=== PATIENT | male | born 1940 | race Caucasian/White ===

== ENCOUNTER 2023-08-25 14:26 | Inpatient (IN) | payer MEDICARE, SELFPAY ==
[2023-08-25] VITALS (8 sets, daily range): BP systolic 117–156; BP diastolic 58–74; BMI 23.9; BMI 23.3
[2023-08-25 11:30] LABS: % Basophils 0.4 % (0-2); % Eosinophils 0.5 % (0-6); % Immature Granulocytes 0.5 % (0-0.5); % Lymphocytes 6.1 % (20.5-51.1); % Monocytes 8.1 % (1.7-9.3); % Neutrophils 84.4 % (42.2-75.2); Absolute Eosinophils 0.1 10^3/uL (0-0.7); Absolute Immature Granulocytes 0.1 10^3/uL (0-0.05); Absolute Lymphocytes 0.6 10^3/uL (1.2-3.4); Absolute Monocytes 0.9 10^3/uL (0.1-0.6); Absolute Neutrophils 8.9 10^3/uL (1.4-6.5); Hematocrit 34.5 % (39.0-52.0); Hemoglobin 12.1 g/dL (13.0-18.0); Mean Corp Hgb Conc. 35.1 g/dL (33.0-37.0); Mean Corpuscular Hgb 31.2 pg (27.0-31.0); Mean Corpuscular Volume 88.9 fL (80.0-94.0); Mean Platelet Volume 10.1 fL (7.4-10.4); Nucleated Red Blood Cells % 0 % (-); Platelet Count 189 10^3/uL (130-400); Red Blood Cell Count 3.88 10^6/uL (4.70-6.10); Red Cell Dist. Width 11.5 % (11.5-14.5); White Blood Cell Count 10.5 10^3/uL (4.8-10.8)
--- NOTE | 2023-08-25 11:33 | ED.GENMED ---
History of Present Illness
<GEOVANNA Rodríguez - Last Filed: 08/25/23 13:26>
General
Chief Complaint: Skin Problem
Source: patient and spouse
Exam Limitations: none
Time Seen by Provider: 08/25/23 11:00
Nursing documentation reviewed up to this point in time: agreed with
Travel History
Have you had any contact with someone who has COVID-19?: No
Do you have any symptoms of coronavirus? Fever > 100 degrees, chills, cough, shortness of breath, sore throat, loss of taste or smell, muscle aches, or headache?: No
History of Present Illness
History of Present Illness:
Patient is an 82-year-old male who presents to the ER with an open wound to left anterior thigh. He reports he started with a very small area of redness and small drainage over a week ago which has since progressively gotten worse. He complains of
increased pain swelling and redness to the area. He denies any fever or chills. Denies any injury
Past History
<GEOVANNA Rodríguez - Last Filed: 08/25/23 13:26>
Past History
ED Past Medical History: CVA (TIA) and Other (gastric ulcers/GI bleed, polio)
ED Past Surgical History: Cholecystectomy and Other (partial gastrectomy)
Social History
Tobacco: Former smoker
Alcohol: None
Drug: None
Personal:
Living: with family
Employment: Retired
Review of Systems
<GEOVANNA Rodríguez - Last Filed: 08/25/23 13:26>
Review of Systems
Allergies reviewed?: Yes
All Other Systems: ROS reviewed and negative except as documented in HPI and ROS
Constitutional: Reports no symptoms; Denies fever, fatigue or chills
EENT: Reports no symptoms
Respiratory: Reports no symptoms
Cardiac: Reports no symptoms
ABD/GI: Reports no symptoms
: Reports no symptoms
Skin: Reports other (+ wound to left thigh with drainage redness/swelling )
Neurological: Reports no symptoms
Hematologic/Lymphatic: Reports no symptoms
Psychiatric: Reports no symptoms
Phy Exam
<GEOVANNA Rodríguez - Last Filed: 08/25/23 13:26>
General Physical Exam
General Presentation: no apparent distress
General age: appears stated age
General Skin: warm and dry
General Habitus: normal
General Mental: alert
General Hydration: appears well hydrated
Neurological Exam
Neurological Exam: alert and oriented x3
Musculoskeletal Exam
Musculoskeletal Exam: other (+ open draining purulent wound to left anterior thigh with erythema , + swelling to thigh )
Skin Exam
Skin Exam: normal color and warm/dry
Psychiatric Exam
Psychiatric Exam: normal mood/affect
Course
<GEOVANNA Rodríguez - Last Filed: 08/25/23 13:26>
Orders/Labs/Results
Orders:
Orders
08/25/23 11:15
Cardiac Monitoring- Treatment ONCE
IV Insert/Care/Rem.- Treatment PRN
08/25/23 11:17
Complete Blood Count/With Diff Urgent
Comprehensive Metabolic Panel Urgent
Lactic Acid Q4H
Comment: ON ICE, CANCEL 2ND ORDER IF FIRST LACTIC ACID LEVEL <2
Blood Culture Q30M
CECY Source: Blood/Venous
Specimen Description:
Date Specimen was Collected: 08/25/23
Time Specimen was Collected: 11:16
Comment: FROM 2 SEPARATE SITES
08/25/23 11:21
Blood Culture Q30M
CECY Source: Blood/Venous
Specimen Description:
Comment: FROM 2 SEPARATE SITES
08/25/23 12:18
CT Lower Ext W/iv Cont Lt Urgent
Comment:
Reason For Exam: abscess
08/25/23 12:27
Urinalysis Reflex To Culture Urgent
Date Specimen was Collected: 08/25/23
Time Specimen was Collected: 11:16
Urine Microscopic Reflex Cult Urgent
Wound Culture [Wound/Abscess/Other Culture] Urgent
CECY Source: Abscess
Specimen Description:
Date Specimen was Collected: 08/25/23
Time Specimen was Collected: 12:22
Comment: left anterior thigh
08/25/23 13:16
Vancomycin 1 Gram/200 ml [Vancocin] 1 gram in 200 ml IV NOW
08/25/23 15:15
Lactic Acid Q4H
Comment: ON ICE, CANCEL 2ND ORDER IF FIRST LACTIC ACID LEVEL <2
Abnormal Lab Results
08/25/23 08/25/23
11:17 12:27
RBC 3.88 L 10^6/uL
(4.70-6.10)
Hgb 12.1 L g/dL
(13.0-18.0)
Hct 34.5 L %
(39.0-52.0)
MCH 31.2 H pg
(27.0-31.0)
Abs Immat Gran (auto) 0.1 H 10^3/uL
(0-0.05)
Absolute Neuts (auto) 8.9 H 10^3/uL
(1.4-6.5)
Absolute Lymphs (auto) 0.6 L 10^3/uL
(1.2-3.4)
Absolute Monos (auto) 0.9 H 10^3/uL
(0.1-0.6)
Neutrophils % 84.4 H %
(42.2-75.2)
Lymphocytes % 6.1 L %
(20.5-51.1)
Sodium 130 L mmol/L
(135-145)
Chloride 94 L mmol/L
(98-107)
Glucose 107 H mg/dl
(70-99)
Lactic Acid 0.6 L mmol/L
(0.7-2.0)
Total Protein 5.7 L g/dl
(6.3-8.2)
Albumin 3.3 L g/dl
(3.5-5.0)
Ur Occult Blood Reflex 1+ A
(Negative)
Urine RBC 3-6 A /HPF
(0-2)
Urine Bacteria (Reflex) Few A
(Negative)
08/25/23 11:17
08/25/23 11:17
Vital Signs
Initial and Last Documented VS:
Initial Vital Signs
Temp Pulse BP Pulse Ox
98.5 F 71 144/70 100
08/25/23 10:06 08/25/23 10:06 08/25/23 10:06 08/25/23 10:06
Last Documented Vital Signs
Temp Pulse BP Pulse Ox
98.5 F 71 140/59 100
08/25/23 10:06 08/25/23 10:06 08/25/23 11:22 08/25/23 11:30
Corporate Risk Analyst consulted with Physician
Corporate Risk Analyst consulted with physician?: Yes
Name of Physician Consulted: Bridget
Carollt;Stephen Gill, - Last Filed: 08/25/23 12:29>
Orders/Labs/Results
Orders:
Orders
08/25/23 11:15
Cardiac Monitoring- Treatment ONCE
IV Insert/Care/Rem.- Treatment PRN
08/25/23 11:17
Complete Blood Count/With Diff Urgent
Comprehensive Metabolic Panel Urgent
Lactic Acid Q4H
Comment: ON ICE, CANCEL 2ND ORDER IF FIRST LACTIC ACID LEVEL <2
Blood Culture Q30M
CECY Source: Blood/Venous
Specimen Description:
Date Specimen was Collected: 08/25/23
Time Specimen was Collected: 11:16
Comment: FROM 2 SEPARATE SITES
08/25/23 11:21
Blood Culture Q30M
CECY Source: Blood/Venous
Specimen Description:
Comment: FROM 2 SEPARATE SITES
08/25/23 12:18
CT Lower Ext W/iv Cont Lt Urgent
Comment:
Reason For Exam: abscess
08/25/23 12:27
Urinalysis Reflex To Culture Urgent
Date Specimen was Collected: 08/25/23
Time Specimen was Collected: 11:16
Urine Microscopic Reflex Cult Urgent
Wound Culture [Wound/Abscess/Other Culture] Urgent
CECY Source: Abscess
Specimen Description:
Date Specimen was Collected: 08/25/23
Time Specimen was Collected: 12:22
Comment: left anterior thigh
08/25/23 13:16
Vancomycin 1 Gram/200 ml [Vancocin] 1 gram in 200 ml IV NOW
08/25/23 15:15
Lactic Acid Q4H
Comment: ON ICE, CANCEL 2ND ORDER IF FIRST LACTIC ACID LEVEL <2
Abnormal Lab Results
08/25/23 08/25/23
11:17 12:27
RBC 3.88 L 10^6/uL
(4.70-6.10)
Hgb 12.1 L g/dL
(13.0-18.0)
Hct 34.5 L %
(39.0-52.0)
MCH 31.2 H pg
(27.0-31.0)
Abs Immat Gran (auto) 0.1 H 10^3/uL
(0-0.05)
Absolute Neuts (auto) 8.9 H 10^3/uL
(1.4-6.5)
Absolute Lymphs (auto) 0.6 L 10^3/uL
(1.2-3.4)
Absolute Monos (auto) 0.9 H 10^3/uL
(0.1-0.6)
Neutrophils % 84.4 H %
(42.2-75.2)
Lymphocytes % 6.1 L %
(20.5-51.1)
Sodium 130 L mmol/L
(135-145)
Chloride 94 L mmol/L
(98-107)
Glucose 107 H mg/dl
(70-99)
Lactic Acid 0.6 L mmol/L
(0.7-2.0)
Total Protein 5.7 L g/dl
(6.3-8.2)
Albumin 3.3 L g/dl
(3.5-5.0)
Ur Occult Blood Reflex 1+ A
(Negative)
Urine RBC 3-6 A /HPF
(0-2)
Urine Bacteria (Reflex) Few A
(Negative)
08/25/23 11:17
08/25/23 11:17
Vital Signs
Initial and Last Documented VS:
Initial Vital Signs
Temp Pulse BP Pulse Ox
98.5 F 71 144/70 100
08/25/23 10:06 08/25/23 10:06 08/25/23 10:06 08/25/23 10:06
Last Documented Vital Signs
Temp Pulse BP Pulse Ox
98.5 F 71 140/59 100
08/25/23 10:06 08/25/23 10:06 08/25/23 11:22 08/25/23 11:30
<GEOVANNA Rodríguez - Last Filed: 08/25/23 13:26>
MDM/Problems Addressed
Differential Diagnosis Includes:
Not limited to cellulitis, abscess
MDM/Problems Addressed:
82-year-old male with significant cellulitis, abscess to left anterior thigh has not had any medical treatment or been evaluated by a provider outside of the ER. He denies any fevers and is afebrile here with a normal white count normal lactic
acid. On exam however there is significant erythema swelling and drainage of what likely is an abscess underlying in the area.
Wound culture was sent. Patient evaluated by ED physician will obtain CAT scan to further evaluate for possible abscess may require debridement Incision/drainage . Sodium mildly low has been low in the past
<GEOVANNA Rodríguez - Last Filed: 08/25/23 13:26>
*Pulse Oximetry
Patient hypoxic: no
*Critical Care Note
Total Time (30-74mins, 75-104mins- exclusive of procedures): Not Applicable
ED Attending Note
<GEOVANNA Rodríguez - Last Filed: 08/25/23 13:26>
-
Portions of this chart may have been created with voice recognition software.� Occasional wrong word or��sound alike� substitutions may have occurred due to the inherent limitations of voice recognition software.
<Stephen Gill DO - Last Filed: 08/25/23 12:29>
ED Attending Note
Patient seen and examined by attending physician: Yes
I performed the substantive portion of visit, reviewed & personally made and approve the management plan that is documented in note by myself or IGOR.: Yes
ED Attending Note:
I agree with Felicia's note.
Pt presents with left thigh redness, swelling. No fever. Started with a small area of redness that has expanded and is now draining purulent material.
afebrile
Left thigh has large area of dark, almost necrotic appears tissue (4 x 4 cm) with purulent drainage. Surrounding area is indurated and tense ? underlying abscess.
IV vacno
CT w contrast to eval for abscess/myositis
Discharge Plan
Departure
Patient Disposition: Admit
Date of Disposition: 08/25/23
Time of Disposition: 13:26
Admit to: Med/Surg
Admit to doctor: hospitalist
Presentation/result/management discussed w/ accepting MD/DO: Hospitalist
Patient with high blood pressure during this ER visit?: Yes
Condition: Fair
Covid-19: Not Applicable
Discharge Problem:
cellulitis and abscess of thigh
Prescriptions:
No Action
multivitamin with folic acid [Tab-A-Mendoza] 1 TABLET tablet
1 tab PO DAILY
simvastatin 20 MG tablet
20 mg PO QPM
aspirin 81 MG tablet,delayed release (DR/EC)
81 mg PO DAILY Qty: 0 0RF
amlodipine [Norvasc] 5 mg Tablet
5 mg PO DAILY
lisinopril 5 mg Tablet
5 mg PO DAILY
Referrals:
Bryce Olvera MD [Family Provider] -
Interventions
Interventions:
*Risk Screen - Suicide Last Done: 08/25/23 11:21
*General Assessment Last Done: 08/25/23 11:21
*Neglect/Abuse Screening Last Done: 08/25/23 11:21
ED- Fall Risk Assessment Last Done: 08/25/23 11:21
ED-Skin Assessment Last Done: 08/25/23 11:21
Discharge Date and Time
Print Language: SETSWANA
[2023-08-25 11:42] LABS: Lactic Acid 0.6 mmol/L (0.7-2.0)
[2023-08-25 11:53] LABS: AST (SGOT) 26 U/L (17-59); Albumin 3.3 g/dl (3.5-5.0); Blood Urea Nitrogen 17 mg/dl (9-20); Calcium 8.7 mg/dl (8.4-10.2); Carbon Dioxide 26 mmol/L (22-30); Estimated Creatinine Clearance 87 ml/min; Glucose 107 mg/dl (70-99); Potassium 4.2 mmol/L (3.5-5.1); Total Bilirubin 0.6 mg/dl (0.2-1.3); Total Protein 5.7 g/dl (6.3-8.2); eGFR > 60.00
[2023-08-25 12:21] LABS: ALT (SGPT) 20 U/L (0-50); Alkaline Phosphatase 71 U/L (38-126); Chloride 94 mmol/L (98-107); Sodium 130 mmol/L (135-145)
[2023-08-25 12:47] LABS: Urine Albumin Negative (Neg - Trace); Urine Bilirubin Negative (Negative); Urine Character Clear (Clear); Urine Color Yellow; Urine Glucose Negative (Negative); Urine Leukocyte Negative (Negative); Urine Nitrite Negative (Negative); Urine Occult Blood 1+ (Negative); Urine Urobilinogen Negative (Neg - 1+)
[2023-08-25 12:49] LABS: Urine Ketone Negative (Negative)
[2023-08-25 13:10] LABS: Urine Bacteria Few (Negative); Urine Squamous Cell 0-2 /LPF (Few); Urine White Cell 0-2 /HPF (0-5)
[2023-08-25] MEDS: VANCOCIN 200 IV (13:44)
--- NOTE | 2023-08-25 14:00 | HPS.HSE ---
Family Physician
-
Family Physician: Bryce Olvera
Chief Complaint
-
Redness and swelling of left lower extremity
History of Present Illness
Patient is an 82 y/o male past medical history of hypertension, and recurrent TIAs who presents with redness and swelling of the left lower extremity. Patient reports 4-5 days ago he developed increasing redness and swelling of this left thigh. He
reports the area got progressively worse and then an area opened and started draining purulent material. He denies any known trauma. He denies fevers, sweats or chills.
Medical History
Past Medical History
Past Medical History: Reports Other
Additional Past Medical History:
Essential Hypertension
Hyperlipidemia
Recurrent TIA
Past Surgical History: Reports Other
Additional Past Surgical History:
Shrapnel Removal
Cholecystectomy
Social History
Tobacco: Non-smoker
Alcohol: None
Personal:
Living: With Family
Family History
Family History: Not pertinent
Allergies / Home Medications
Allergies reflects when Allergies were last updated in [facility].
Home Medications with original date entered in [facility]
Allergy/Medication List:
Allergies
Allergy/AdvReac Type Severity Reaction Status Date / Time
No Known Drug Allergies Allergy Unknown Verified 08/25/23 10:11
Home Medications
multivitamin with folic acid 400 mcg tablet (Tab-A-Mendoza) 1 tab PO DAILY Supplement 01/18/20
simvastatin 20 mg tablet 20 mg PO QPM High cholesterol 07/02/21
aspirin 81 mg tablet,delayed release 81 mg PO DAILY Blood clot prevention/tx ##0 07/03/21
amlodipine 5 mg tablet (Norvasc) 5 mg PO DAILY 04/09/23
lisinopril 5 mg tablet 5 mg PO DAILY 08/25/23
Review of Systems
-
A 12 point ROS was completed and negative except as noted: Yes
Constitutional: Denies Fever or Chills
Abdomen/GI: Denies Nausea or Vomiting
Skin: Reports See HPI
Physical Exam
Vital Signs
Vital Signs
Temp Pulse BP Pulse Ox
98.5 F 71 140/59 100
08/25/23 10:06 08/25/23 10:06 08/25/23 11:22 08/25/23 11:30
Physical Exam
General: Comfortable and Conversant
HEENT: Anicteric and Moist mucous membranes
Respiratory: Clear and Non Labored Respirations
Cardiac: S1/S2 and Regular Rhythm; No Tachycardia
GI: Soft and Non Tender
Musculoskeletal: No Clubbing, No Cyanosis and Edema, Left Lower Extremity
Skin: Other (Significant erythema with increased warmth to tough involving of left thigh; Open area draining purulent material noted)
Neuro: Awake, Alert, Oriented and Nonfocal/grossly intact
Laboratory Results
-
08/25/23 11:17
08/25/23 11:17
Laboratory Results
Lactic Acid 0.6 mmol/L (0.7-2.0) L 08/25/23 11:17
Total Bilirubin 0.6 mg/dl (0.2-1.3) 08/25/23 11:17
AST 26 U/L (17-59) 08/25/23 11:17
ALT 20 U/L (0-50) 08/25/23 11:17
Alkaline Phosphatase 71 U/L (38-126) 08/25/23 11:17
Data Reviewed
-
Lab Data: Labs Reviewed by me
Impression/Plan
-
Left Thigh Cellulitis with Abscess
-Consult General Surgery
-Continue vancomycin
-Await wound and blood cultures
-Await CT scan
Hyponatremia, mild
-Recheck in AM
-Consider further work-up with urine electrolytes if sodium remains low
Essential Hypertension
-Continue amlodipine and lisinopril with hold parameters
Hyperlipidemia
-Continue statin
Recurrent TIA
-Continue aspirin
DVT proph: Lovenox
Code Status: Full Code
--- NOTE | 2023-08-25 14:05 | W.PN.UPDATE ---
Update Note
Progress Note Update
I saw and examined the patient.
The HAND BRUSH FILLER or PA's note was reviewed and I agree with the note.
Comment: 82-year-old male presents with a left lower extremity wound that has progressed over the last 4 to 5 days.
140/59, 71, 98.5 �F, 100% on room air
No acute distress, awake and alert
Regular rate and rhythm, normal S1-S2
Clear to auscultation bilaterally
Left anterior thigh with 3 cm ulcer with scant purulent discharge. There are some pustules on the edge of the ulcer. The tissue is raised, indurated, tender, warm, erythematous.
WBC 10.5, hemoglobin 12.1, platelet 189
Sodium 130, potassium 4.2, creatinine 0.7
Left lower extremity cellulitis:
-Very likely the patient has an underlying abscess
-Check CT of the left lower extremity
-Consult surgery
-IV vancomycin for now
[2023-08-25] MEDS: DILAUDID 0.5 MG IV (15:50)
--- NOTE | 2023-08-25 16:11 | CON.GS ---
Medical History
-
Chief Complaint: LEFT knee pain
History of Present Illness:
Patient is an 82 yo M with a PMH of HTN, HLD, and recurrent TIAs (on ASA 81 mg) who presents with LEFT knee/thigh swelling, pain, and erythema. Mr. Guzman states that his symptoms began last Thursday and have progressed since that time. He has
noticed increased swelling, redness, and pain. No history of trauma. No obvious bites or skin lesions overlying the area. Mild purulent drainage. No antibiotic treatments. No significant functional limitations such as deeper knee joint pain or
inability to flex or extend his knee. No fevers or chills. No prior history of abscesses or cysts. Currently on a baby aspirin, but no other anticoagulation. Workup in the ED notable for afebrile, hemodynamically stable, normal WBC,
hyponatremia, normal renal function, normal lactate. A CT scan of the lower extremity was performed which demonstrates cellulitis as well as a approximately 3 x 4 cm abscess.
Past Medical History
Past Medical History: HTN and Hypercholesterolemia
Past Surgical History: None
Social History
Tobacco: Non-Smoker
Alcohol: None
Drug: None
Personal:
Living: With Family
Employment: Retired
Family History
Family History: Reviewed & Not Pertinent
Allergies / Home Medications
Allergy/AdvReac Type Severity Reaction Status Date / Time
No Known Drug Allergies Allergy Unknown Verified 08/25/23 10:11
�Medication �Instructions �Recorded �Confirmed �Type
multivitamin with folic acid 400 1 tab PO DAILY Supplement 01/18/20 08/25/23 History
mcg tablet (Tab-A-Mendoza)
simvastatin 20 mg tablet 20 mg PO QPM High cholesterol 07/02/21 08/25/23 History
aspirin 81 mg tablet,delayed 81 mg PO DAILY Blood clot 07/03/21 08/25/23 Rx
release prevention/tx ##0
amlodipine 5 mg tablet (Norvasc) 5 mg PO DAILY Blood Pressure 04/09/23 08/25/23 History
lisinopril 5 mg tablet 5 mg PO DAILY Blood Pressure 08/25/23 08/25/23 History
Review of Systems
-
A 10 point review of systems was completed, and was negative except as per HPI.
Physical Exam
Vital Signs
Temp Pulse BP Pulse Ox
98.5 F 71 132/65 99
08/25/23 10:06 08/25/23 10:06 08/25/23 14:00 08/25/23 14:45
08/24/23 08/25/23 08/26/23
06:59 06:59 06:59
Actual Weight 75.7 kg
Body Mass Index (BMI) 23.9
Lab Results
08/25/23 11:17
08/25/23 11:17
WBC 10.5 10^3/uL (4.8-10.8) 08/25/23 11:17
Hgb 12.1 g/dL (13.0-18.0) L 08/25/23 11:17
Hct 34.5 % (39.0-52.0) L 08/25/23 11:17
Plt Count 189 10^3/uL (130-400) 08/25/23 11:17
Abs Immat Gran (auto) 0.1 10^3/uL (0-0.05) H 08/25/23 11:17
Neutrophils % 84.4 % (42.2-75.2) H 08/25/23 11:17
Physical Exam
General: Well Developed, Well Nourished and No Apparent Distress
HEENT: Normocephalic and Anicteric
Respiratory: Non Labored Respirations
Cardiac: Regular Rhythm
GI: Soft, Non Tender and Non Distended
Musculoskeletal: Other (LEFT anterior knee/thigh with area of 15 x 15 cm with swelling, edema, erythema, tender to palpation, smaller more focal area proximately 3 x 3 cm with superficial skin breakdown and mild purulent drainage)
Skin: Warm and Dry
Neuro: Nonfocal/Grossly Intact
Data Reviewed
-
CT Scan: Image Personally Visualized and interpreted and Report Reviewed by me
Labs: Labs Reviewed by me
Assessment / Plan
-
Patient is an 82 yo M p/w LLE soft tissue abscess
Given the size and extent of cellulitis and abscess formation this is unlikely to be resolved with antibiotics alone. Recommend incision and drainage. Options for bedside drainage versus operative drainage were considered and discussed. The pros
and cons of both approaches was discussed with the patient. Patient is motivated and willing to proceed with bedside drainage.
Plan for incision and drainage of LEFT lower extremity soft tissue abscess. The procedure itself, as well as the risks, benefits, and alternatives was discussed (see separate procedure note). Specifically, we discussed the risks of bleeding,
persistent infection necessitating further drainage procedures, injury to surrounding structures (muscle, nerves), and prolonged wound healing were discussed. Typical postprocedure recovery was discussed. All questions answered. Verbal consent
obtained.
-- Incision and drainage of LLE abscess
-- Antibiotics: Vancomycin, wound cultures obtained
-- Regular diet
-- Dressing change tomorrow
--- NOTE | 2023-08-25 16:19 | W.PN.SURGUPD ---
Surgical Update
Surgical Update
Incision and drainage was performed at bedside. Verbal consent obtained.
Administration of 0.5 mg of Dilaudid IV for pain control. Local anesthetic in the form of 1% Lidocaine with Epinephrine (10 cc) was used as a field block. The area was prepped and draped in usual sterile fashion. A linear incision overlying the
abscess cavity was performed. This incision measured approximately 2.5 cm. Evacuation of 30-40 cc purulent and bloody fluid. Wound culture obtained. Compression of surrounding tissues to confirm complete evacuation. Significant decompression of
cavity. Wound was irrigated. Wound packed with dry gauze and covered with dry gauze Curlex and an Jayme wrap. Patient tolerated the procedure well. Will be admitted to hospital for IV antibiotics and wound care.
--- NOTE | 2023-08-25 16:36 | PHA.VAN.IN ---
Assessment
- Assessment
Renal Function: Appears similar to baseline
Concomitant Antimicrobials: NONE
- Previous Dosing Experience
Previous Regimen: NONE
AUC Dosing Plan
- Dosing Variables
Dosing Weight (kg): 75.7
Dosing CrCl (ml/min): 87
Vd coefficient (L/kg): 0.7
- Empiric Dosing
Initial / Loading Dose: 1750MG TOTAL
Maintenance Regimen: 1GM IV Q12H
Estimated AUC (mcg*h/mL): 512
Estimated Peak (mcg*h/mL): 31.4
Estimated Trough (mcg/ml): 13.5
Estimated Half Life (H): 9.0
Pharmacokinetics Vancomycin I
- -
Patient Age: 82
Patient Sex: Male
Vancomycin Day #: 1
Indication: Skin And Soft Tissue (LLE ABSCESS)
Requesting Provider: ZBIGNIEW
Height / Weight:
Height 5 ft 10 in
Actual Weight 73.567 kg
- Vital Signs / Lab Results
Temp Pulse BP Pulse Ox
98.5 F 71 132/65 99
08/25/23 10:06 08/25/23 10:06 08/25/23 14:00 08/25/23 14:45
Lab Results - Hematology
08/25/23
11:17
WBC 10.5
Lab Results - Chemistry
08/25/23
11:17
BUN 17
Creatinine 0.7
Estimated Creat Clear 87
Albumin 3.3 L
08/25/23 08/25/23
11:17 15:15
Lactic Acid 0.6 L Cancelled
Lab Results - Urine
08/25/23
12:27
Urine Nitrite (Reflex) Negative
Leukocyte Esterase Rfl Negative
Urine WBC (Reflex) 0-2
Ur Squamous Epith Cells 0-2
Urine Bacteria (Reflex) Few A
Microbiology Results
08/25/23 12:27 Gram Stain - Preliminary
Abscess
[2023-08-25] MEDS: NSS 1000 IV (16:53)
[2023-08-25] MEDS: VANCOCIN 150 IV (16:54)
[2023-08-25] MEDS: LIPITOR 10 MG PO (17:09)
[2023-08-25] MEDS: LOVENOX 40 MG SC (17:09)
--- NOTE | 2023-08-25 17:13 | PTCARENOTE ---
pt admitted from ED AOx3, denies pain. LCTA on RA. abd soft NT +BS x4 last BM yesterday. cont b&B. dressing intact to right thigh. +PP B/L. IVF and vanco. CB in reach and spouse at bedside
[2023-08-26] MEDS: VANCOCIN 200 IV ×2 (05:24→17:14)
[2023-08-26 05:45] LABS: Hematocrit 31.8 % (39.0-52.0); Hemoglobin 10.9 g/dL (13.0-18.0); Mean Corp Hgb Conc. 34.3 g/dL (33.0-37.0); Mean Corpuscular Volume 90.3 fL (80.0-94.0); Mean Platelet Volume 10.7 fL (7.4-10.4); Platelet Count 171 10^3/uL (130-400); Red Blood Cell Count 3.52 10^6/uL (4.70-6.10); Red Cell Dist. Width 11.5 % (11.5-14.5); White Blood Cell Count 8.3 10^3/uL (4.8-10.8)
[2023-08-26 06:07] LABS: Blood Urea Nitrogen 13 mg/dl (9-20); Calcium 8.1 mg/dl (8.4-10.2); Carbon Dioxide 25 mmol/L (22-30); Chloride 99 mmol/L (98-107); Estimated Creatinine Clearance 101 ml/min; Glucose 99 mg/dl (70-99); Potassium 4.2 mmol/L (3.5-5.1); Sodium 130 mmol/L (135-145); eGFR > 60.00
[2023-08-26 07:30] VITALS: BP 132/58
[2023-08-26] MEDS: ZESTRIL 5 MG PO (08:45)
[2023-08-26] MEDS: NORVASC 5 MG PO (08:45)
[2023-08-26] MEDS: ASPIR LOW (ENTERIC COATED) 81 MG PO (08:45)
--- NOTE | 2023-08-26 09:38 | W.PN.HOSP.TC ---
Today's Communication/Plan
-
see bold
Assessment / Plan
Assessment / Plan
Gen: NAD, AAOx3.
Eyes: EOMI, PERRLA, no scleral icterus.
Neck: supple.
CV: RRR, +S1/S2, no m/r/g.
Resp: CTAB, no rales, wheezes, or rhonchi.
Abd: +BS, soft, NT, ND
Skin: No rashes. L thigh with C/D/I DENISE wrap
Neuro: CN 2-12 intact, non-focal.
Psych: Normal mood and affect.
CT LLE: There is cellulitis throughout the right thigh with diffuse edema versus inflammatory stranding in the subcutaneous tissues of the left thigh and a more focal poorly circumscribed collection of low density fluid in the subcutaneous fat of
the anterior lower midportion of the left thigh more suggestive of focal edema than abscess as it is not associated with an enhancing wall.
Left lower extremity cellulitis:
-s/p I&D of abscess with expression of 30-40cc purulent/bloody fluid
-cont IV vancomycin for now
-c/s ID
-follow WCx
Other problems:
Hyponatremia, mild, stable, outpt w/u.
Chronic anemia, stable, outpt w/u.
Essential Hypertension: Continue amlodipine and lisinopril with hold parameters
Hyperlipidemia: Continue statin
Recurrent TIA: cont ASA/statin
FULL/Lovenox
Anticipated Discharge: 24 - 48 hours
Subjective/Interval History
-
Date of Service: August 26, 2023
No new complaints.
Objective Data
-
Labs:
Laboratory Results
08/26/23
05:22
WBC 8.3
Hgb 10.9 L
Hct 31.8 L
Plt Count 171
Sodium 130 L
Potassium 4.2
Chloride 99
Carbon Dioxide 25
BUN 13
Creatinine 0.6 L
Glucose 99
Calcium 8.1 L
Vital Signs:
Vital Signs
Temp Pulse Resp BP Pulse Ox
98.3 F 69 16 132/58 95
08/26/23 07:30 08/26/23 07:30 08/26/23 07:30 08/26/23 07:30 08/26/23 07:30
I&O
08/25/23 08/26/23 08/27/23
06:59 06:59 06:59
Intake Total 1480 / 1480
Output Total 1110 / 1110
Balance 370 / 370
--- NOTE | 2023-08-26 11:43 | PHA.VAN.FU ---
Vancomycin Assessment / Plan
- Assessment
Renal Function: Stable
WBC's are: WNL
In the past 24 hrs, patient has been: Afebrile
- Dosing Plan
Continue: vanconycin 1000 mg q12h - first dose 08/25 599
- Monitoring Plan
No level(s) ordered at this time: consider level when pt nears steady state
- Follow Up
Pharmacy will continue to follow.
Vancomycin Follow UP
- -
Patient Age: 82
Patient Sex: Male
Vancomycin Day #: 2
Indication: Skin And Soft Tissue (LLE ABSCESS)
Requesting Provider: ZBIGNIEW
Height / Weight:
Height 5 ft 10 in
Actual Weight 73.567 kg
- Vital Signs / Lab Results
Temp Pulse Resp BP Pulse Ox
98.3 F 69 16 132/58 95
08/26/23 07:30 08/26/23 07:30 08/26/23 07:30 08/26/23 07:30 08/26/23 07:30
Lab Results - Hematology
08/25/23 08/26/23
11:17 05:22
WBC 10.5 8.3
Lab Results - Chemistry
08/25/23 08/26/23
11:17 05:22
BUN 17 13
Creatinine 0.7 0.6 L
Estimated Creat Clear 87 101
Albumin 3.3 L
08/25/23 08/25/23
11:17 15:15
Lactic Acid 0.6 L Cancelled
Lab Results - Urine
08/25/23
12:27
Urine Nitrite (Reflex) Negative
Leukocyte Esterase Rfl Negative
Ur Squamous Epith Cells 0-2
Microbiology Results
08/25/23 11:21 Blood Culture - Preliminary
Blood/Venous No Growth in 24 hours- Final report to follow
08/25/23 11:17 Blood Culture - Preliminary
Blood/Venous No Growth in 24 hours- Final report to follow
08/25/23 12:27 Wound Culture - Preliminary
Abscess Staph aureus MRSA
Gram Stain - Preliminary
08/25/23 16:26 Gram Stain - Preliminary
Abscess
--- NOTE | 2023-08-26 14:56 | CM ---
Alert awake oriented patient who lives with his Gema who lives in a 2 story home with 1 step to enter and 6 steps to bed and bathroom. He is independent in driving and in all activities of daily living.He was offered VN he declined need.No
adaptive devices.
[facility] V[facility] hx / No SNF history
Ph[facility]acy [facility]
PCP DR Olvera
PLAN Home Declined VN
[2023-08-26 15:10] VITALS: BP 123/59
--- NOTE | 2023-08-26 15:30 | WOUNDNOTE ---
WOC RN NOTE: Patients wound debrided by Dr. Chavez and wound care orders added. Will follow peripherally.
--- NOTE | 2023-08-26 16:17 | CON.ID ---
Consultation
-
Date/Time Consultation Requested: 08/26/2023 09:40
Date/Time Consultation Performed: 08/26/2023 1200
Requesting Provider: Dr. Fuentes
Performing Provider: Dr. Lopez
Reason for Consultation: Left leg cellulitis
Chief Complaint / Past History
History of Present Illness
Jaya Guzman is an 82-year-old male being evaluated at the request of Dr. Fuentes in regards to a left leg infection. History is obtained from chart review, along with patient interview.
The patient reports that approximately 1 week prior to admission he developed a small pimple on his left leg on the anterior aspect. He notes that over the intervening week it grew in size with increasing discomfort and swelling. He reports some
drainage of blood and pus. Ultimately he presented to the hospital and the area was lanced. Cultures now reveal growth of MRSA, and Infectious Diseases is asked to comment upon further antimicrobial therapy.
During this period time he denies any fevers or chills. He noted increasing erythema of the anterior portion of the thigh, but no extension below the knee. He denies any inguinal discomfort.
Past History
Additional Past Medical History:
TIA x 4
Gastric ulcer
Additional Past Surgical History:
Cholecystectomy
Partial gastrectomy
Allergy History:
No Known Drug Allergies Allergy (Verified 08/25/23 10:11)
Unknown
Medications Reviewed: Yes
Current Antibiotics:
Vancomycin
Social History
Tobacco: Former Smoker
Alcohol: None
Drug: None
Personal:
Living: With Family
Employment: Retired
Family History
Family History: Not Pertinent
Review of Systems
Vital Signs
Temp Pulse Resp BP Pulse Ox
98.7 F 72 16 123/59 98
08/26/23 15:10 08/26/23 15:10 08/26/23 15:10 08/26/23 15:10 08/26/23 15:10
Physical Exam
Physical Exam
Constitutional: No Acute Distress, Comfortable and Non-toxic
Head: Normocephalic
Eyes: Pupils Equal, Pupils Round, No Conjunctival Hemorrhage and Sclera Anicteric
Oral: No Thrush and No Ulcers
Cardiovascular: S1/S2 and Murmur; Negative S3/S4
Pulmonary: Clear; Negative Wheezes, Rales or Rhonchi
Gastrointestinal: Soft, Non Tender, Non Distended and Normal Bowel Sounds
Skin: Warm and Dry; Negative Rash or Jaundice
Wound: Other (Left thigh with carbuncle and surrounding periwound erythema. Surrounding induration noted. Mild tenderness.)
Neurological: Awake and Alert
Psychological: Calm
Lab / Diagnostic Study Results
08/26/23 05:22
08/26/23 05:22
Abs Immat Gran (auto) 0.1 10^3/uL (0-0.05) H 08/25/23 11:17
Absolute Neuts (auto) 8.9 10^3/uL (1.4-6.5) H 08/25/23 11:17
Absolute Lymphs (auto) 0.6 10^3/uL (1.2-3.4) L 08/25/23 11:17
Absolute Monos (auto) 0.9 10^3/uL (0.1-0.6) H 08/25/23 11:17
Absolute Basos (auto) 0.0 10^3/uL (0-0.2) 08/25/23 11:17
Immature Gran % 0.5 % (0-0.5) 08/25/23 11:17
Neutrophils % 84.4 % (42.2-75.2) H 08/25/23 11:17
Lymphocytes % 6.1 % (20.5-51.1) L 08/25/23 11:17
Monocytes % 8.1 % (1.7-9.3) 08/25/23 11:17
Eosinophils % 0.5 % (0-6) 08/25/23 11:17
Basophils % 0.4 % (0-2) 08/25/23 11:17
Lactic Acid Cancelled 08/25/23 15:15
Ur Squamous Epith Cells 0-2 /LPF (Few) 08/25/23 12:27
Microbiology Results
Micro:
08/25/23 16:26 Wound Culture - Preliminary
Abscess Staph aureus MRSA
Gram Stain - Preliminary
08/25/23 11:21 Blood Culture - Preliminary
Blood/Venous No Growth in 24 hours- Final report to follow
08/25/23 11:17 Blood Culture - Preliminary
Blood/Venous No Growth in 24 hours- Final report to follow
08/25/23 12:27 Wound Culture - Preliminary
Abscess Staph aureus MRSA
Gram Stain - Preliminary
08/25/23 22:54 MRSA Screen - Pending
Nose
Imaging:
08/25/2023 CT left lower extremity: There is cellulitis throughout the right thigh with diffuse edema versus inflammatory stranding in the subcutaneous tissues of the left thigh and a more focal poorly circumscribed collection of low density fluid
in the subcutaneous fat of the anterior lower midportion of the left thigh more suggestive of focal edema than abscess as it is not associated with an enhancing wall.
Assessment / Plan
Left thigh carbuncle.
MRSA infection
Hx TIA
Hx gastric ulcer
Recommendations:
Continue with vancomycin. Follow levels closely.
Sensitivities of recovered MRSA isolate are pending. Once released, decision can be made regarding transition to oral therapy.
Continue with local care to the wound.
Monitor white count and temperature curve.
[2023-08-26] MEDS: LIPITOR 10 MG PO (17:13)
[2023-08-26] MEDS: LOVENOX 40 MG SC (17:14)
[2023-08-26 23:24] VITALS: BP 145/67
[2023-08-27 06:00] VITALS: BMI 23.0
[2023-08-27] MEDS: VANCOCIN 200 IV ×2 (06:07→17:46)
[2023-08-27] MEDS: FLUSH (NSS) 1 FLUSH IV (06:08)
[2023-08-27 07:26] VITALS: BP 143/73
[2023-08-27] MEDS: ZESTRIL 5 MG PO (07:26)
[2023-08-27] MEDS: ASPIR LOW (ENTERIC COATED) 81 MG PO (07:26)
[2023-08-27] MEDS: NORVASC 5 MG PO (07:26)
--- NOTE | 2023-08-27 08:12 | W.PN.HOSP.TC ---
Addendum entered and electronically signed by Rikki Fuentes MD 08/27/23 12:37:
Total time spent on d/c = 36 min. This included today's physical exam, progress note, review of laboratory and diagnostic data, preparation of discharge documents and prescriptions, and discussions about the pt's hospital course and discharge plan
with the patient and other medical sales representative involved in the patient's care.
Original Note:
Today's Communication/Plan
-
see bold
Assessment / Plan
Assessment / Plan
Gen: NAD, AAOx3.
Eyes: EOMI, PERRLA, no scleral icterus.
Neck: supple.
CV: remains RRR, +S1/S2, no m/r/g.
Resp: Cremains TAB, no rales, wheezes, or rhonchi.
Abd: +BS, soft, NT, ND
Skin: remains No rashes. L thigh with C/D/I DENISE wrap
Neuro: CN 2-12 intact, non-focal.
Psych: Normal mood and affect.
08/25/23 22:54 Nose MRSA Screen - Preliminary
Culture in Progress
08/25/23 12:27 Abscess Wound Culture - Preliminary
Staph aureus MRSA
08/25/23 12:27 Abscess Gram Stain - Preliminary
08/25/23 16:26 Abscess Wound Culture - Preliminary
Staph aureus MRSA
08/25/23 16:26 Abscess Gram Stain - Preliminary
08/25/23 11:21 Blood/Venous Blood Culture - Preliminary
No Growth in 24 hours- Final report to follow
08/25/23 11:17 Blood/Venous Blood Culture - Preliminary
No Growth in 24 hours- Final report to follow
CT LLE: There is cellulitis throughout the right thigh with diffuse edema versus inflammatory stranding in the subcutaneous tissues of the left thigh and a more focal poorly circumscribed collection of low density fluid in the subcutaneous fat of
the anterior lower midportion of the left thigh more suggestive of focal edema than abscess as it is not associated with an enhancing wall.
Left lower extremity cellulitis:
-s/p I&D of abscess with expression of 30-40cc purulent/bloody fluid
-WCx with MRSA
-cont IV vancomycin as per ID
Other problems:
Hyponatremia, mild, stable, outpt w/u.
Chronic anemia, stable, outpt w/u.
Essential Hypertension: Continue amlodipine and lisinopril with hold parameters
Hyperlipidemia: Continue statin
Recurrent TIA: cont ASA/statin
FULL/Lovenox
Anticipated Discharge: Within 24 hours
Subjective/Interval History
-
Date of Service: August 27, 2023
No new complaints.
Objective Data
-
Vital Signs:
Vital Signs
Temp Pulse Resp BP Pulse Ox
98.0 F 68 18 143/73 99
08/27/23 07:26 08/27/23 07:26 08/27/23 07:26 08/27/23 07:26 08/27/23 07:26
I&O
08/26/23 08/27/23 08/28/23
06:59 06:59 06:59
Intake Total 1480 / 1480 960 / 960
Output Total 1110 / 1110 3250 / 3250
Balance 370 / 370 -2290 / -2290
--- NOTE | 2023-08-27 12:23 | W.PN.ID1 ---
Date of Service
Date of Service: August 27, 2023
Today's Communication
Continue antibiotics. See below�
Assessment / Plan
Left thigh carbuncle.
MRSA infection
Hx TIA
Hx gastric ulcer
Recommendations:
Continue with vancomycin. Follow levels closely.
Sensitivities of MRSA isolate noted. I have asked the lab to release linezolid sensitivities. If susceptible, he can be discharged on linezolid 600 mg p.o. twice daily for an additional 7 days of therapy.
Continue with local care to the wound.
Monitor white count and temperature curve.
Chief Complaint
-: Cellulitis
Subjective / Review of Systems
Review of Systems: No Fever and No Chills
Vital Signs / Physical Exam
Vital Signs
Vital Signs
Temp Pulse Resp BP Pulse Ox
98.0 F 68 18 143/73 99
08/27/23 07:26 08/27/23 07:26 08/27/23 07:26 08/27/23 07:26 08/27/23 07:26
Physical Exam
Constitutional: No Acute Distress, Comfortable and Non-toxic
Eyes: Sclera Anicteric
Cardiovascular: S1/S2; Negative S3/S4
Pulmonary: Non Labored
Wound: Other (left anterior thigh with dressing in place. No strikethrough. )
Neurological: Awake and Alert
Psychological: Calm
Objective Data
Lab Data
Lab Results
08/26/23 05:22
08/26/23 05:22
Estimated Creat Clear 101 ml/min 08/26/23 05:22
Lactic Acid Cancelled 08/25/23 15:15
Total Bilirubin 0.6 mg/dl (0.2-1.3) 08/25/23 11:17
AST 26 U/L (17-59) 08/25/23 11:17
ALT 20 U/L (0-50) 08/25/23 11:17
Alkaline Phosphatase 71 U/L (38-126) 08/25/23 11:17
Most recent labs reviewed.
Micro Results:
08/25/23 11:21 Blood Culture - Preliminary
Blood/Venous No Growth in 48 hours- Final report to follow
08/25/23 11:17 Blood Culture - Preliminary
Blood/Venous No Growth in 48 hours- Final report to follow
08/25/23 16:26 Wound Culture - Final
Abscess Staph aureus MRSA
Gram Stain - Final
08/25/23 12:27 Wound Culture - Final
Abscess Staph aureus MRSA
Gram Stain - Final
08/25/23 22:54 MRSA Screen - Preliminary
Nose Culture in Progress
Imaging:
08/25/2023 CT left lower extremity: There is cellulitis throughout the right thigh with diffuse edema versus inflammatory stranding in the subcutaneous tissues of the left thigh and a more focal poorly circumscribed collection of low density fluid
in the subcutaneous fat of the anterior lower midportion of the left thigh more suggestive of focal edema than abscess as it is not associated with an enhancing wall.
Care Review
Plan reviewed with: Physician (Hospitalist)
--- NOTE | 2023-08-27 12:57 | W.DCSUMMARY ---
Discharge Summary
Discharge Data
Date of Admission: 08/25/23
Date of Discharge: 08/28/23
-
Pending Results: No
Hospital Course
Primary diagnoses:
Left thigh methicillin-resistant Staphylococcus aureus abscess with cellulitis
Secondary diagnoses:
Hyponatremia
Chronic anemia
Essential Hypertension
Hyperlipidemia
Recurrent transient ischemic attack
Consultants:
Infectious disease
Surgery
Imaging:
CT LLE: There is cellulitis throughout the right thigh with diffuse edema versus inflammatory stranding in the subcutaneous tissues of the left thigh and a more focal poorly circumscribed collection of low density fluid in the subcutaneous fat of
the anterior lower midportion of the left thigh more suggestive of focal edema than abscess as it is not associated with an enhancing wall.
Hospital course: 82-year-old male redness and swelling of left lower extremity as outlined in the H&P done on admission. The patient underwent incision and debridement of the abscess with expression of 30-40cc purulent/bloody fluid. Wound culture
grew MRSA. Patient improved on IV vancomycin and was transitioned to 7 days of Zyvox on discharge.
Discharge Plan
-
Patient Disposition: Home (Routine Discharge)
Discharge Diagnosis/Procedures: Left thigh methicillin-resistant Staphylococcus aureus abscess with cellulitis
Condition: Good
Diet: Other diet
Additional Diets: heart healthy
Activity: As tolerated
Driving Restrictions: Not until seen by your Dr
Bathing Restrictions: None
Referrals:
Justin Chavez MD [Active] - in two to four weeks
Bryce Olvera MD [Family Provider] - in less than 1 week
Prescriptions:
New
linezolid [Zyvox] 600 mg tablet
600 mg PO BID Qty: 13 0RF
Continued
multivitamin with folic acid [Tab-A-Mendoza] 1 TABLET tablet
1 tab PO DAILY
simvastatin 20 MG tablet
20 mg PO QPM
aspirin 81 MG tablet,delayed release (/EC)
81 mg PO DAILY Qty: 0 0RF
amlodipine [Norvasc] 5 mg Tablet
5 mg PO DAILY
lisinopril 5 mg Tablet
5 mg PO DAILY
Discharge Orders:
Discharge Patient (As Directed); Ordered 08/28/23
Ordered By: Rikki Fuentes
Discharge Date and Time
Print Language: GEORGIAN
[2023-08-27 13:00] VITALS: BP 140/75
--- NOTE | 2023-08-27 14:56 | CM ---
talent development manager following for d/c planning
Plan for d/c is for pt to be d/c'ed on Linezolid 600mg PO q12hrs - needs preauth
Predetermination form for medication faxed to [employer] -
Per Aena will take 24-72hrs for determination
Plan - anticipate d/c to home, no needs when medication approved
[2023-08-27 15:00] VITALS: BP 148/63
--- NOTE | 2023-08-27 15:47 | PHA.VAN.FU ---
Vancomycin Assessment / Plan
- Assessment
Renal Function: No New Labs Today
In the past 24 hrs, patient has been: Afebrile
- Dosing Plan
Continue: Vanc 1000mg Q12H
- Monitoring Plan
No level(s) ordered at this time: discharge plans on PO antibiotics noted - hold off on levels at this time
- Follow Up
Pharmacy will continue to follow.
Vancomycin Follow UP
- -
Patient Age: 82
Patient Sex: Male
Vancomycin Day #: 3
Indication: Skin And Soft Tissue
Requesting Provider: Ty Milian
Pertinent Antimicrobial Allergies:
NKDA
Height / Weight:
Height 5 ft 10 in
Actual Weight 72.665 kg
- Vital Signs / Lab Results
Temp Pulse Resp BP Pulse Ox
98 F 69 16 148/63 99
08/27/23 15:00 08/27/23 15:00 08/27/23 15:00 08/27/23 15:00 08/27/23 15:00
Lab Results - Hematology
08/25/23 08/26/23
11:17 05:22
WBC 10.5 8.3
Lab Results - Chemistry
08/25/23 08/26/23
11:17 05:22
BUN 17 13
Creatinine 0.7 0.6 L
Estimated Creat Clear 87 101
Albumin 3.3 L
08/25/23 08/25/23
11:17 15:15
Lactic Acid 0.6 L Cancelled
Microbiology Results
08/25/23 12:27 Wound Culture - Final
Abscess Staph aureus MRSA
Gram Stain - Final
08/25/23 11:21 Blood Culture - Preliminary
Blood/Venous No Growth in 48 hours- Final report to follow
08/25/23 11:17 Blood Culture - Preliminary
Blood/Venous No Growth in 48 hours- Final report to follow
08/25/23 16:26 Wound Culture - Final
Abscess Staph aureus MRSA
Gram Stain - Final
08/25/23 22:54 MRSA Screen - Preliminary
Nose Culture in Progress
--- NOTE | 2023-08-27 16:20 | W.PN.UPDATE ---
Update Note
Progress Note Update
At this time the precertification for the patient's Zyvox has not come through from the insurance company. I discussed this with the patient. At this time he would like to stay in the hospital through tomorrow afternoon to see if the
precertification comes through. Otherwise he would like to be discharged and just pay the full cost for the Zyvox. Case management and nursing updated at length.
[2023-08-27] MEDS: LIPITOR 10 MG PO (17:17)
[2023-08-27] MEDS: LOVENOX 40 MG SC (17:46)
--- NOTE | 2023-08-27 18:37 | VATNOTE ---
called to restart pt. due to large vanco infiltrate in right forearm. Measured 9cm wide x 20cm long. area red and non painful. area marked. Elevated right arm on pillow and applied ice per protocol. Awaiting hylenex for injection.
[2023-08-27] MEDS: HYLENEX 30 UNITS SC ×5 (19:17→19:19)
--- NOTE | 2023-08-27 19:20 | VATNOTE ---
hylenex given now subq; area of edema has now extended into hand measuring 8cm wide by 6 cm high. 2 injections of the 5 were given in right hand. heat will be applied now per protocol.
[2023-08-27 23:09] VITALS: BP 132/67
[2023-08-28 05:29] VITALS: BMI 22.9
[2023-08-28] MEDS: VANCOCIN 200 IV (06:04)
[2023-08-28 07:00] VITALS: BP 154/70
[2023-08-28] MEDS: ZESTRIL 5 MG PO (08:23)
[2023-08-28] MEDS: ASPIR LOW (ENTERIC COATED) 81 MG PO (08:23)
[2023-08-28] MEDS: NORVASC 5 MG PO (08:23)
--- NOTE | 2023-08-28 09:16 | W.PN.HOSP.TC ---
Today's Communication/Plan
-
d/c
Assessment / Plan
Assessment / Plan
Gen: NAD, AAOx3.
Eyes: EOMI, PERRLA, no scleral icterus.
Neck: supple.
CV: continues to remain RRR, +S1/S2, no m/r/g.
Resp: continues to remain CTAB, no rales, wheezes, or rhonchi.
Abd: +BS, soft, NT, ND
Skin: L anterior thigh open incision (~2cm) surrounded by erythema, induration, and raised soft tissue
Neuro: CN 2-12 intact, non-focal.
Psych: Normal mood and affect.
08/25/23 22:54 Nose MRSA Screen - Final
Staph aureus MRSA
08/25/23 12:27 Abscess Wound Culture - Final
Staph aureus MRSA
08/25/23 12:27 Abscess Gram Stain - Final
08/25/23 11:21 Blood/Venous Blood Culture - Preliminary
No Growth in 48 hours- Final report to follow
08/25/23 11:17 Blood/Venous Blood Culture - Preliminary
No Growth in 48 hours- Final report to follow
08/25/23 16:26 Abscess Wound Culture - Final
Staph aureus MRSA
08/25/23 16:26 Abscess Gram Stain - Final
CT LLE: There is cellulitis throughout the right thigh with diffuse edema versus inflammatory stranding in the subcutaneous tissues of the left thigh and a more focal poorly circumscribed collection of low density fluid in the subcutaneous fat of
the anterior lower midportion of the left thigh more suggestive of focal edema than abscess as it is not associated with an enhancing wall.
Left lower extremity cellulitis:
-s/p I&D of abscess with expression of 30-40cc purulent/bloody fluid
-WCx with MRSA
-cont IV vancomycin until discharge on Zyvox as per ID
Other problems:
Hyponatremia, mild, stable, outpt w/u.
Chronic anemia, stable, outpt w/u.
Essential Hypertension: Continue amlodipine and lisinopril with hold parameters
Hyperlipidemia: Continue statin
Recurrent TIA: cont ASA/statin
FULL/Lovenox
Total time spent on d/c = 31 min. This included today's physical exam, progress note, review of laboratory and diagnostic data, preparation of discharge documents and prescriptions, and discussions about the pt's hospital course and discharge plan
with the patient and other medical services assistant involved in the patient's care.
Anticipated Discharge: Today
Subjective/Interval History
-
Date of Service: August 28, 2023
Objective Data
-
Vital Signs:
Vital Signs
Temp Pulse Resp BP Pulse Ox
97.6 F 64 16 154/70 99
08/28/23 07:00 08/28/23 08:23 08/28/23 07:00 08/28/23 08:23 08/28/23 07:00
I&O
08/27/23 08/28/23 08/29/23
06:59 06:59 06:59
Intake Total 960 / 960 1820 / 1820
Output Total 3250 / 3250 1510 / 1510
Balance -2290 / -2290 310 / 310
--- NOTE | 2023-08-28 09:35 | CM ---
Addendum entered by Sarah Bravo 08/28/23 11:09:
Spoke with pt - aware [facility] will be able to supply partial supply of medication
He will call pharm to follow up for remaining medication
Declined HH
Plan - discharge to home -no needs
Addendum entered by Sarah Bravo 08/28/23 10:37:
Spoke with pharm rep at [facility] [phone]
Medication is in stock - they will transfer Rx - can provide pt with partial supply of medication until his pharm has medication in stock
Original Note:
Case management following for d/c planning
Pt to be d/c'ed taking Linezolid - required pre-cert
Received notice form [employer] - pre-cert approved
Called [facility] - [phone] - spoke with pharm rep
They obtained precert - pts co-pay will be $47.33 - medication not in stock - will be available on Thursday 08/31
Dr Fuentes made aware
[2023-08-28 11:00] VITALS: BP 130/65
--- NOTE | 2023-08-28 12:12 | W.PN.ID1 ---
Date of Service
Date of Service: August 28, 2023
Today's Communication
For D/C on zyvox.
Assessment / Plan
Left thigh carbuncle.
MRSA infection
Hx TIA
Hx gastric ulcer
Recommendations:
Zyvox has been sourced as an outpatient.
Patient to continue with an additional 7 days
Continue with local care to the wound.
����������������������������������������������������������
Chief Complaint
-: Cellulitis (MRSA abscess)
Subjective / Review of Systems
Review of Systems: No Fever and No Chills
Vital Signs / Physical Exam
Vital Signs
Vital Signs
Temp Pulse Resp BP Pulse Ox
97.9 F 71 16 130/65 100
08/28/23 11:00 08/28/23 11:00 08/28/23 11:00 08/28/23 11:00 08/28/23 11:00
Physical Exam
Constitutional: No Acute Distress, Comfortable and Non-toxic
Pulmonary: Non Labored
Wound: Other (left leg with decreased erythema, induration, tenderness. No sig drainage.)
Neurological: Awake and Alert
Psychological: Calm
Objective Data
Lab Data
Lab Results
08/26/23 05:22
08/26/23 05:22
Estimated Creat Clear 101 ml/min 08/26/23 05:22
Lactic Acid Cancelled 08/25/23 15:15
Total Bilirubin 0.6 mg/dl (0.2-1.3) 08/25/23 11:17
AST 26 U/L (17-59) 08/25/23 11:17
ALT 20 U/L (0-50) 08/25/23 11:17
Alkaline Phosphatase 71 U/L (38-126) 08/25/23 11:17
Most recent labs reviewed.
Micro Results:
08/25/23 11:21 Blood Culture - Preliminary
Blood/Venous No Growth in 72 hours- Final report to follow
08/25/23 11:17 Blood Culture - Preliminary
Blood/Venous No Growth in 72 hours- Final report to follow
08/25/23 22:54 MRSA Screen - Final
Nose Staph aureus MRSA
08/25/23 12:27 Wound Culture - Final
Abscess Staph aureus MRSA
Gram Stain - Final
08/25/23 16:26 Wound Culture - Final
Abscess Staph aureus MRSA
Gram Stain - Final
Imaging:
08/25/2023 CT left lower extremity: There is cellulitis throughout the right thigh with diffuse edema versus inflammatory stranding in the subcutaneous tissues of the left thigh and a more focal poorly circumscribed collection of low density fluid
in the subcutaneous fat of the anterior lower midportion of the left thigh more suggestive of focal edema than abscess as it is not associated with an enhancing wall.
Care Review
Plan reviewed with: Physician (Hospitalist)
== END 2023-08-28 12:29 | disposition home or self-care (01) | DRG 603 ==
LOC: 3 WEST ACU 14:26
PROVIDERS: Nurse Practitioner; Physician Assistant Medical; ADMITTING PHYSICIAN Internal Medicine; EMERGENCY PHYSICIAN Emergency Medicine; FAMILY PHYSICIAN Family Medicine; OTHER PHYSICIAN Internal Medicine Infectious Disease; OTHER PHYSICIAN Surgery
PROC: 0H9LXZZ Drainage of Left Lower Leg Skin, External Approach (ICD-10-PCS; 2023-08-25)
DX: L03.116 Cellulitis of left lower limb (principal); E87.1 Hypo-osmolality and hyponatremia; L02.91 Cutaneous abscess, unspecified; D64.9 Anemia, unspecified; I10 Essential (primary) hypertension; E78.00 Pure hypercholesterolemia, unspecified; B95.62 Methicillin resistant Staphylococcus aureus infection as the cause of diseases classified elsewhere
CPT/HCPCS: 73701; 80048; 80053; 81003; 81015; 83605; 85025; 85027; 87040; 87070; 87147; 87186; 87205; 99285; Q9967

== ENCOUNTER 2023-09-19 23:24 | Emergency (ER) | payer MEDICARE, SELFPAY ==
[2023-09-19 23:28] VITALS: BP 161/71
[2023-09-19 23:55] VITALS: BMI 24.4
--- NOTE | 2023-09-20 00:05 | ED.SKININJ ---
HPI-Injury
General
Chief Complaint: Skin Problem
Source: patient and family
Exam Limitations: none
Time Seen by Provider: 09/19/23 23:40
Nursing documentation reviewed up to this point in time: agreed with except (Left leg not right leg)
History of Present Illness-Injury
Initial Injury comments:
Pleasant 82-year-old male that presents with left leg redness and swelling. Patient states that he felt feverish. 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 He decided come into the emergency department because he thought that his MRSA had
returned. He states that en route to the hospital, the redness and swelling reverted back to normal. Upon arrival he had no complaints. Patient stated he did feel feverish but upon arrival, he had a normal temperature. Has no complaints at this
time. Wishes to be discharged.
Past History
Past History
ED Past Medical History: CVA (TIA) and Other (gastric ulcers/GI bleed, polio)
ED Past Surgical History: Cholecystectomy and Other (partial gastrectomy)
Social History
Tobacco: Former smoker
Alcohol: None
Drug: None
Personal:
Living: with family
Employment: Retired
Review of Systems
Review of Systems
Allergies reviewed?: Yes
All Other Systems: ROS reviewed and negative except as documented in HPI and ROS
Constitutional: Reports fever (Subjective)
Skin: Reports other (Erythema)
Psychiatric: Reports anxiety
Phy Exam
General Physical Exam
General Presentation: well appearing and no apparent distress
General Skin: warm and dry
General Habitus: normal
General Mental: alert
General Hydration: appears well hydrated
ENT Exam
ENT Exam: EOMI, pharynx normal, neck supple and normocephalic
Eye Exam
Eye Exam: PERRL, cornea clear and conjunctiva normal
Cardiovascular Exam
Cardiovascular Exam: regular rate/rhythm, no edema, no murmur and normal peripheral pulses
Pulmonary Exam
Pulmonary Exam: lungs clear, no respiratory distress, no rales, no crackles, no rhonchi, no stridor, no wheezing and no cough
Gastrointestinal Exam
Gastrointestinal Exam: normal bowel sounds, non tender, soft, no organomegaly, no pulsatile mass and non distended
Neurological Exam
Neurological Exam: alert, oriented x3, no motor deficits and speech normal
Musculoskeletal Exam
Musculoskeletal Exam: full ROM and no edema
Skin Exam
Skin Exam: normal color, warm/dry, no rash, no petechia and other (Well-healed surgical site. No evidence of cellulitis. No swelling. No warmth. Some dry skin surrounding)
Psychiatric Exam
Psychiatric Exam: normal mood/affect
Course
Vital Signs
Initial and Last Documented VS:
Initial Vital Signs
Temp Pulse Resp BP Pulse Ox
98.1 F 71 20 161/71 98
09/19/23 23:28 09/19/23 23:28 09/19/23 23:28 09/19/23 23:28 09/19/23 23:28
Last Documented Vital Signs
Temp Pulse Resp BP Pulse Ox
98.1 F 71 20 161/71 98
09/19/23 23:28 09/19/23 23:28 09/19/23 23:28 09/19/23 23:28 09/19/23 23:28
*Critical Care Note
Total Time (30-74mins, 75-104mins- exclusive of procedures): Not Applicable
Update Note
Update Note:
09/20/2023 0008 AM: At the time of my exam, symptoms have resolved. I offered lab work and ultrasound the patient. At this time he deferred all testing. He states that his leg looks 'better than it had in a while'. He understands that without
testing at I cannot explain why his leg was swollen and red briefly tonight. We did discuss return to ER instructions. Patient will return with any changing or worsening of symptoms.
ED Attending Note
-
Portions of this chart may have been created with voice recognition software.� Occasional wrong word or��sound alike� substitutions may have occurred due to the inherent limitations of voice recognition software.
Discharge Plan
Departure
Patient Disposition: Home (Routine Discharge)
Date of Disposition: 09/20/23
Time of Disposition: 00:08
Patient with high blood pressure during this ER visit?: Yes
Condition: Good
Discharge Problem:
Visit for wound check
Instructions: Wound Care (DC), BLOOD PRESSURE
Prescriptions:
No Action
multivitamin with folic acid [Tab-A-Mendoza] 1 TABLET tablet
1 tab PO DAILY
simvastatin 20 MG tablet
20 mg PO QPM
aspirin 81 MG tablet,delayed release (DR/EC)
81 mg PO DAILY Qty: 0 0RF
amlodipine [Norvasc] 5 mg Tablet
5 mg PO DAILY
lisinopril 5 mg Tablet
5 mg PO DAILY
Referrals:
Bryce Olvera MD [Family Provider] - As needed
UNKNOWN - PT DOES,NOT KNOW [Unknown Provider] -
Activity Restrictions/Additional Instructions:
It was a pleasure meeting you and taking part in your care. We hope for your continued healing and wellness.
Please read discharge instructions in their entirety. However, they are for general education and may not describe your exact diagnosis at discharge. Information on your ER visit and medical conditions were discussed with you along with appropriate
follow up information...
If indicated, please take your medications as instructed and indicated on discharge paperwork.
Please schedule a follow up appointment as directed. Call to schedule an appointment
Please return to the emergency department with ANY change in, persisting, or worsening of symptoms. If any of your symptoms do not improve, or persist, or become more severe within 6-12 hours, please return to the emergency department for further
care.
Please return to the emergency department if you develop a headache, neck pain/stiffness, fever greater than 100.4F, chest pain, shortness of breath, persistent nausea, vomiting, slurred speech, difficulty walking, numbness/tingling, weakness, signs
of infection or any other symptoms that are worrisome to you.
If you have any questions or concerns please do not hesitate to call the Hospital at or E-mail me directly at [email or web address]
Interventions
Interventions:
*Risk Screen - Suicide Last Done: 09/19/23 23:28
*General Assessment Last Done: 09/19/23 23:28
*Neglect/Abuse Screening Last Done: 09/19/23 23:28
ED- Fall Risk Assessment Last Done: 09/19/23 23:28
*ED COVID-19 Vaccine History Last Done: 09/19/23 23:28
*Nursing Disposition Last Done: 09/20/23 00:18
ED-Skin Assessment Last Done: 09/19/23 23:57
Discharge Date and Time
Discharge Date/Time: 09/20/23 00:20
Print Language: GREENLANDIC
== END 2023-09-20 00:20 | disposition home or self-care (01) ==
LOC: EMR 23:24
PROVIDERS: EMERGENCY PHYSICIAN Student in an Organized Health Care Education/Training Program; FAMILY PHYSICIAN Family Medicine
DX: Z48.00 Encounter for change or removal of nonsurgical wound dressing (principal); R50.9 Fever, unspecified; M79.89 Other specified soft tissue disorders; R03.0 Elevated blood-pressure reading, without diagnosis of hypertension; Z86.14 Personal history of Methicillin resistant Staphylococcus aureus infection; Z86.73 Personal history of transient ischemic attack (TIA), and cerebral infarction without residual deficits; Z87.11 Personal history of peptic ulcer disease; Z87.891 Personal history of nicotine dependence; Z86.12 Personal history of poliomyelitis; Z79.82 Long term (current) use of aspirin; Z90.49 Acquired absence of other specified parts of digestive tract; Z98.84 Bariatric surgery status
CPT/HCPCS: 99282

== ENCOUNTER → 2024-08-16 09:09 | Outpatient (REF) | payer MEDICARE, SELFPAY | LOC: RAD 09:09 | PROVIDERS: ATTENDING PHYSICIAN Specialist; FAMILY PHYSICIAN Family Medicine | DX: R31.0 Gross hematuria (principal) | CPT/HCPCS: 74178; Q9967 ==

== ENCOUNTER 2025-03-15 06:20 | Day surgery (SDC) | payer MEDICARE, SELFPAY ==
[2025-03-01 09:07] LABS: Hematocrit 38.9 % (39.0-52.0); Hemoglobin 12.8 g/dL (13.0-18.0); Mean Corp Hgb Conc. 32.9 g/dL (33.0-37.0); Mean Corpuscular Volume 91.3 fL (80.0-94.0); Platelet Count 276 10^3/uL (130-400); Red Cell Dist. Width 11.9 % (11.5-14.5)
[2025-03-01 09:57] LABS: Blood Urea Nitrogen 23 mg/dl (9-20); Calcium 8.9 mg/dl (8.4-10.2); Carbon Dioxide 31 mmol/L (22-30); Chloride 100 mmol/L (98-107); Glucose 109 mg/dl (70-99); Potassium 5.2 mmol/L (3.5-5.1); Sodium 133 mmol/L (135-145); eGFR > 60.00
[2025-03-01 13:52] VITALS: BMI 21.4
[2025-03-15] VITALS (7 sets, daily range): BP systolic 115–153; BP diastolic 38–69; BMI 21.4
[2025-03-15] MEDS: TYLENOL 1000 MG PO (08:26)
[2025-03-15] MEDS: NORMOSOL-R/PLASMALYTE-A 1000 IV (08:26)
== END 2025-03-15 14:05 | disposition home or self-care (01) ==
LOC: SDS 06:20
PROVIDERS: ATTENDING PHYSICIAN Surgery; FAMILY PHYSICIAN Family Medicine
DX: K40.90 Unilateral inguinal hernia, without obstruction or gangrene, not specified as recurrent (principal)
CPT/HCPCS: 49650; 80048; 85027; 93005; C1781